=== PATIENT | male | born 1955 | race Caucasian/White ===

== ENCOUNTER 2022-06-30 08:44 | Outpatient (CLI) | payer OTHER | END 2022-06-30 23:59 | disposition home or self-care (01) | LOC: 64 CT 08:44 | PROVIDERS: ATTEND Family Medicine | DX: K76.0 Fatty (change of) liver, not elsewhere classified (principal); R16.0 Hepatomegaly, not elsewhere classified; K57.30 Diverticulosis of large intestine without perforation or abscess without bleeding; I70.0 Atherosclerosis of aorta; N40.0 Benign prostatic hyperplasia without lower urinary tract symptoms; R31.0 Gross hematuria; M47.814 Spondylosis without myelopathy or radiculopathy, thoracic region; M47.817 Spondylosis without myelopathy or radiculopathy, lumbosacral region; M43.16 Spondylolisthesis, lumbar region | CPT/HCPCS: 74176 ==